=== PATIENT | female | born 1995 | race Caucasian/White ===

== ENCOUNTER 2016-12-26 09:38 | Emergency (ER) | payer MEDICAID ==
[~2016-12-26] VITALS: Ht 144.8 cm; Wt 107.5 kg
[2016-12-26 09:42] VITALS: BP_SYST 129
[2016-12-26] MEDS ORDERED: DIPHENHYDRAMINE HCL 25 MG CAPSULE PO ONE (10:30)
[2016-12-26] MEDS ORDERED: BACITRACIN 1 GM OINT TP ONE (10:30)
[2016-12-26] MEDS ORDERED: IBUPROFEN 800 MG TABLET PO ONE (10:45)
[2016-12-26 11:10] VITALS: BP_SYST 120
== END 2016-12-26 11:10 | disposition home or self-care (01) ==
LOC: SED 09:38
DX: S60.460A Insect bite (nonvenomous) of right index finger, initial encounter (principal); W57.XXXA Bitten or stung by nonvenomous insect and other nonvenomous arthropods, initial encounter; Y93.89 Activity, other specified; Y92.89 Other specified places as the place of occurrence of the external cause; Y99.8 Other external cause status
CPT/HCPCS: 99284; Q0163